=== PATIENT | male | born 1950 | race Caucasian/White ===

== ENCOUNTER 2017-02-01 09:34 | Observation (INO) | payer BC ==
--- NOTE | ~2017-02-01 | HP ---
History And Physical [id number] [place]. [address] NAME: RUPAL LEO : 54 STATUS : ADM Arnulfo PAT#: [id number] AGE: 66 ADM/REG DATE : 02/01/17 MR#: [id number] REPORT SERV DATE: 02/01/17 DICTATED BY: SARA FAULKNER DATE: 02/01/17 REPORT STATUS : Draft TRANSCRIBED BY: MODKurt DATE: 02/01/17 DATE OF ADMISSION: 02/01/2017 PRIMARY [employer]BI[employer] LABORER: Angel Irvin M.D. CHIEF COMPLAINT: Heart racing. 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 This was unusual, so he took his blood pressure. It was normal, but then he felt his pulse and it was racing. His blood pressure monitor said his heart rate was in the 140s. He denies any accompanying shortness of breath or chest pain nor did he feel dizzy. His only complaint was that he "felt a little weak in my legs." When the heart rate was still high, he came to the emergency department for further evaluation around 8 o'clock in the morning. He was given some IV Cardizem bolus with drip started when EKG demonstrated suspected atrial flutter at a rate of 143 beats per minute. The patient was also given p.o. Eliquis and admitted to our Atrial Fibrillation Observation Unit. Upon arrival to the Clinical Decision Unit, the patient was in sinus rhythm with Cardizem at 10 mg/hour. He states he is currently asymptomatic. The patient has a history of diastolic CHF as well as chronic kidney disease, followed by Dr. Mcwilliams. He is compliant with his diuretics, but does state some weight gain perhaps 10 pounds over the last several months, which he attributes to overeating. He has not noticed increased swelling and he denies orthopnea or PND. He does mention a cough that has been going on for a couple of months sometimes with white-colored sputum discharge. He saw a "doc in the box" a couple of weeks ago and was started on doxycycline, which he completed after seven days. He denies any fever chills. No significant shortness of breath associated with the cough. Of note, he was restarted on lisinopril as well in the last several weeks. The patient does admit to snoring. He has never had a formal sleep study. He denies personal history for CVA, PE, DVT, or IN. He states he is mostly compliant with salt restrictions. PAST MEDICAL HISTORY: 1. Asthma. 2. Diastolic heart failure with hospitalization at [facility] a couple of years ago. EF 55% on echocardiogram in 06/2015. 3. 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 Minor luminal irregularities to other coronary arteries. 4. Chronic kidney disease, stage 2 to 3, followed by Dr. Mcwilliams. The patient reports recent increase in creatinine up to 1.9. 5. Hypertension. 6. History of right bundle-branch block and left anterior fascicular block. The patient states intolerance to carvedilol in the past with bradycardia and hypotension. 7. Lower extremity edema. 8. Type 2 diabetes mellitus. History And Physical [address] [address] NAME: RUPAL LEO : 54 STATUS : ADM Arnulfo PAT#: [id number] AGE: 66 ADM/REG DATE : 02/01/17 MR#: [id number] REPORT SERV DATE: 02/01/17 DICTATED BY: SARA FAULKNER DATE: 02/01/17 REPORT STATUS : Draft TRANSCRIBED BY: STEFF DATE: 02/01/17 PAST SURGICAL HISTORY: Left total hip replacement on 01/05/2016. HOME MEDICATIONS: Albuterol two puffs t.i.d. p.r.n., aspirin 500 b.i.d. p.r.n. hip pain, vitamin D3 4000 units daily, Flonase one spray at bedtime p.r.n., Lasix 20 mg at bedtime, Lasix 40 mg every morning, Duraflex one tab p.o. with breakfast, BiDil 20/37.5 t.i.d., lisinopril 20 at bedtime, pravastatin 40 at bedtime, Janumet 50/100 one tab b.i.d. ALLERGIES: PENICILLIN, CAUSED ALLERGIC REACTION A CHILD, AND THE PATIENT WAS TOLD HE ALMOST . SOCIAL HISTORY: The patient is . Works in the insurance industry. He has never smoked. Occasional beer maybe twice a year. Denies illicit drug use. FAMILY HISTORY: Mother with CHF, alive at age 86. Father with CHF, at age 80. No premature cardiovascular-related deaths among his first-degree relatives. REVIEW OF SYSTEMS: Negative except as indicated above. PHYSICAL EXAMINATION: VITAL SIGNS: Blood pressure was 163/100 on admission to the emergency department, currently 125/68; heart rates in the 140s, now 82; temperature 98.8; pulse oximetry 99% on room air. GENERAL: Well developed, well nourished, in no acute distress HEENT: Anicteric. Normal EOM. Head normocephalic. PERRLA, no xanthelasma. NECK: Supple. No JVD. Carotids normal without bruits. LUNGS: Mild crackles at the bilateral bases. Normal respiratory effort at rest. CARDIAC: S1, S2 regular rate and rhythm. No murmurs, rubs, or gallops. No chest wall tenderness. ABDOMEN: Normal bowel sounds. Soft and nontender to palpation. No masses or organomegaly. EXTREMITIES: 1+ edema to the bilateral lower extremities. Normal distal pulses. No calf tenderness. No cyanosis or clubbing. SKIN: Warm and dry. Normal turgor. No pallor or cyanosis. MUSCULOSKELETAL: Moving all extremities x4. Normal muscle strength. NEURO/PSYCH: Alert and oriented with appropriate affect. LABORATORY DATA: Sodium 140, potassium 4.7, BUN 38, creatinine 1.7. White blood count 15.4, hemoglobin 13.6, hematocrit 41.7. Troponin 0.03, TSH 3.9, and BNP 170. IMAGING: Chest x-ray shows no acute cardiopulmonary processes and some mild cardiomegaly. EKG indicates an SVT versus atrial flutter at the rate of 140 beats per minute, evidence of right bundle-branch block. Second EKG obtained in the Clinical Decision Unit showing sinus rhythm with first-degree AV block, right bundle-branch block, and left anterior fascicular block. ASSESSMENT AND PLAN: 1. Atypical aflutter versus supraventricular tachycardia, which terminated within a couple History And Physical [address] [address] NAME: RUPAL LEO : 54 STATUS : ADM Arnulfo PAT#: [id number] AGE: 66 ADM/REG DATE : 02/01/17 MR#: [id number] REPORT SERV DATE: 02/01/17 DICTATED BY: SARA FAULKNER DATE: 02/01/17 REPORT STATUS : Draft TRANSCRIBED BY: STEFF DATE: 02/01/17 of hours of IV Cardizem initiation. Dr. Loving has seen the patient along with me and believes that this was more likely to be supraventricular tachycardia. The patient was started on Eliquis in the emergency department, but this will be discontinued given the brief nature of the episode and no prior history. We will not continue diltiazem given that the patient has left anterior fascicular block and right bundle-branch block and has not tolerated AV arpan agents in the past. I have recommended to follow up with Dr. Irvin, and I will leave a message to see that his appointment is moved up in the next couple of weeks. I have instructed the patient to come back to the emergency department for recurrence of his symptoms. Would also consider outpatient sleep study given that the patient likely has obstructive sleep apnea predisposing him to atrial dysrhythmias. 2. Chronic diastolic congestive heart failure with perhaps some mild volume overload, but given the patient's chronic kidney disease and he continues to take his Lasix, we will continue current management. I have reinforced his sodium restrictions. 3. Chronic kidney disease, stage 3. The patient has been recently restarted on lisinopril. The patient deferred to Dr. Mcwilliams if consideration may be to change this to losartan given that the patient has a cough. 4. Mild leukocytosis with and no recent fever or chills, negative chest x-ray, no urinary tract infection symptoms. The patient has been having ongoing cough with some occasional expectoration. It is recommended that he follow up with his primary care physician. The patient denies any significant shortness of breath. 5. Type 2 diabetes mellitus, on Janumet. Will continue. We will discharge the patient home today. FARHAT/STEFF Sara Faulkner NP / [id number] CC: ROSALBA Tolliver DO Allen E Atchley, M.D.
[2017-02-01 08:57] LABS: BASOPHILS 0.2 %; BASOPHILS ABSOLUTE 0.03 10/3/uL (0.0-0.16); EOSINOPHILS 3.7 %; EOSINOPHILS ABSOLUTE 0.57 10/3/uL (0.0-0.53); HEMATOCRIT 41.7 % (40.0-51.0); HEMOGLOBIN 13.6 g/dL (13.6-17.8); IMMATURE GRANULOCYTES 0.5 %; IMMATURE GRANULOCYTES ABSOLUTE 0.08 10/3/uL (0.0-0.11); LYMPHOCYTES 9.7 %; LYMPHOCYTES ABSOLUTE 1.49 10/3/uL (0.67-4.30); MEAN CORPUS HGB CONC 32.6 g/dL (32.0-36.0); MEAN CORPUSCULAR HEMOGLOB 28.6 pg (26.0-34.0); MEAN CORPUSCULAR VOLUME 87.8 fL (80-100); MEAN PLATELET VOLUME 9.4 fL (9.2-13.0); MONOCYTES 6.6 %; MONOCYTES ABSOLUTE 1.01 10/3/uL (0.21-1.20); NEUTROPHILS 79.3 %; NEUTROPHILS ABSOLUTE 12.17 10/3/uL (2.02-8.40); PLATELET COUNT 269 10/3/uL (150-400); RBC DISTRIBUTION WIDTH 14.1 % (12.0-16.0); RED CELL COUNT 4.75 10/6/uL (4.7-6.1)
[2017-02-01 08:59] LABS: MANUAL DIFF NO %; WHITE BLOOD CELLS 15.4 10/3/uL (4.5-10.5)
[2017-02-01 09:04] LABS: PARTIAL THROMBO TIME 32.3 SEC (22.5-37.2); PROTIME (NOT ORD) 13.4 SEC (12.0-14.5)
[2017-02-01 09:20] LABS: BUN (BLOOD UREA NITROGEN) 38 MG/DL (6-23); CHEST PAIN PROFILE TAT 0 Hrs 27 Mins; CHLORIDE, SERUM 105 MMOL/L (96-112); CO2 (CARBON DIOXIDE) 28 MMOL/L (24-34); CREATININE 1.75 MG/DL (0.70-1.30); GFR AFRICAN AMERICAN 47 ML/MIN (>=60); GFR NON AFRICAN AMERICAN 40 ML/MIN (>=60); GLUCOSE, SERUM 193 MG/DL (60-99); POTASSIUM, SERUM 4.7 MMOL/L (3.5-5.3); SODIUM, SERUM 140 MMOL/L (135-148); TROPONIN I 0.03 NG/ML (<0.05)
[~2017-02-01 09:34] MED LIST: ACET500CAP PO; ASAB PO; BAYER500 MG PO; BIDIL20/37 PO; CIALIS20 MG PO; COMBIVENT RESPIM4 GM INH; COREG12 PO; DEPO-TESTOS200 MG/ML IM; DURAFLEX PO; FLONASE NAS; JANUMET XR 50-1 EAC1 PO; JANUMET1 TA1 PO; L20 PO; L40 PO; LIPITOR40 PO; PRAVACHOL40 MG PO; PRIN10 PO; PRIN20 PO; PROAIR HFA INH; VITAMIN D31000 UNIT PO
[2017-02-01] MEDS ORDERED: HALF81 PO (09:38)
[2017-02-01 10:10] LABS: SALICYLATE < 1.7 MG/DL (-)
[2017-02-01] MEDS ORDERED: BAYER500 MG PO (13:53)
== END 2017-02-01 14:11 | disposition home or self-care (01) ==
LOC: ER 09:34 → CDU1 10:41 → CDU2 11:31
PROVIDERS: Hospitalist
DX: I47.1 Supraventricular tachycardia (principal); I48.92 Unspecified atrial flutter; I13.0 Hypertensive heart and chronic kidney disease with heart failure and stage 1 through stage 4 chronic kidney disease, or unspecified chronic kidney disease; E11.22 Type 2 diabetes mellitus with diabetic chronic kidney disease; N18.3 Chronic kidney disease, stage 3 (moderate); I50.30 Unspecified diastolic (congestive) heart failure; I25.10 Atherosclerotic heart disease of native coronary artery without angina pectoris; I45.2 Bifascicular block; J45.909 Unspecified asthma, uncomplicated; Z96.642 Presence of left artificial hip joint; Z88.0 Allergy status to penicillin; Z82.49 Family history of ischemic heart disease and other diseases of the circulatory system; Z79.899 Other long term (current) drug therapy; Z79.84 Long term (current) use of oral hypoglycemic drugs
CPT/HCPCS: 71010; 80048; 83735; 83880; 84443; 84484; 85025; 85610; 85730; 93005; 96365; 96366; 99291; A9270-GY; G0378; G0480